=== PATIENT | female | born 2000 | race Native Hawaiian/Other Pacific Islander ===

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

== ENCOUNTER 2022-04-09 10:01 | Emergency (ER) | payer OTHER ==
[~2022-04-09] VITALS: Ht 160 cm; Wt 110.2 kg
[2022-04-09 10:03] VITALS: BP 151/74; TEMP 99
== END 2022-04-09 11:00 | disposition home or self-care (01) ==
LOC: ED 10:01
DX: K04.7 Periapical abscess without sinus (principal); H92.01 Otalgia, right ear; Z3A.10 10 weeks gestation of pregnancy
CPT/HCPCS: 96372; 99282; J0561

== ENCOUNTER 2022-05-18 19:40 | Emergency (ER) | payer OTHER ==
[~2022-05-18] VITALS: Ht 160 cm; Wt 108.9 kg
[2022-05-18 21:00] VITALS: BP 121/71; TEMP 98.1
== END 2022-05-18 21:05 | disposition home or self-care (01) ==
LOC: ED 19:40
DX: G44.209 Tension-type headache, unspecified, not intractable (principal); Z3A.13 13 weeks gestation of pregnancy
CPT/HCPCS: 80307; 81002; 99282

== ENCOUNTER 2023-05-10 17:50 | Emergency (ER) | payer OTHER ==
[~2023-05-10] VITALS: Ht 160 cm; Wt 90.3 kg
[2023-05-10 17:55] VITALS: TEMP 98.7
[2023-05-10] MEDS ORDERED: SODIUM CHLORIDE 0.9% 1,000 ML IV ONE ×2 (18:25→18:28)
[2023-05-10] MEDS ORDERED: Ondansetron HCl 4 MG INJ INJ ONE (18:26)
[2023-05-10 18:36] LABS: PLATELET COUNT 520 K/uL (152-353)
[2023-05-10 18:44] LABS: POTASSIUM 4.2 mmol/L (3.6-5.2)
[2023-05-10] MEDS ORDERED: GI COCKTAIL-HYOSCYAMINE 30 ML ML PO ONE ×2 (18:58→18:59)
[2023-05-10] MEDS ORDERED: TORADOL 60MG/2ML INJ IM ONE (19:39)
[2023-05-10] MEDS ORDERED: TORADOL 30MG/ML INJ INJ ONE (19:41)
[2023-05-10] MEDS ORDERED: TORADOL 30MG/ML INJ ONE (19:42)
[2023-05-10 20:19] VITALS: BP 123/70
== END 2023-05-10 20:18 | disposition home or self-care (01) ==
LOC: ED 17:50
PROVIDERS: Internal Medicine Endocrinology, Diabetes & Metabolism
DX: K52.9 Noninfective gastroenteritis and colitis, unspecified (principal); U07.0 Vaping-related disorder
CPT/HCPCS: 80053; 81002; 81025; 83690; 85027; 96361; 96374; 96375; 99284; J1885; J2405